=== PATIENT | female | born 1940 ===

== ENCOUNTER 2023-03-02 09:13 | Inpatient (IN) | payer OTHER ==
[~2023-03-02] VITALS: Ht 160 cm; Wt 67.1 kg
[2023-03-08] MEDS ORDERED: NEURONTIN300 MG PO (13:17)
[2023-03-08] MEDS ORDERED: PRILOSEC OTC20 MG PO (13:17)
[2023-03-08] MEDS ORDERED: INTESTINEX680 M1 PO (13:17)
[2023-03-08] MEDS ORDERED: ACETAMINOPHEN500 M2 PO (13:17)
== END 2023-03-08 13:54 | disposition home or self-care (01) | DRG 331 ==
LOC: SURH 03-06 07:00 → O/R 03-06 07:35 → SURH 03-06 08:15
PROVIDERS: ADMIT Surgery; ATTEND Surgery
PROC: 0DBP4ZZ Excision of Rectum, Percutaneous Endoscopic Approach (ICD-10-PCS; 2023-03-06)
PROC: 8E0W4CZ Robotic Assisted Procedure of Trunk Region, Percutaneous Endoscopic Approach (ICD-10-PCS; 2023-03-06)
PROC: 4A1BXSH Monitoring of Gastrointestinal Vascular Perfusion using Indocyanine Green Dye, External Approach (ICD-10-PCS; 2023-03-06)
PROC: 0DTN4ZZ Resection of Sigmoid Colon, Percutaneous Endoscopic Approach (ICD-10-PCS; principal; 2023-03-06 07:00)
DX: K57.20 Diverticulitis of large intestine with perforation and abscess without bleeding (principal); K64.8 Other hemorrhoids; R19.4 Change in bowel habit
CPT/HCPCS: 44207; 44213; S2900